=== PATIENT | male | born 1940 | race Caucasian/White ===

== ENCOUNTER 2021-11-14 07:45 | Outpatient (CLI) | payer MEDICARE, SELFPAY ==
--- NOTE | 2021-11-28 11:53 | WPDSLEEPSTUD ---
Sleep Study Date of Study: 11/14/21 Ordering Provider: Benjy Clark, DO Interpreting Physician: Neena Freitas MD Sleep Study Type: BiPAP Titration Height: 1.63 m Weight: 96.162 kg Body Mass Index: 36.3 Neck Circumference (inches): 14.5 [place]: 1 Reason for Sleep Study PETER on BiPAP, complaint with elevated AHI 21 and hypersomnolence with memory loss * PSG 2014, AHI 10.9 * PSG 04/2021, AHI 36 * PSG 06/05/2021 BiPAP 8/4; compliance from July 15 through August 13, 2021 shows average usage 4 hours 30 minutes, used 100% the days greater than 4 hours, AHI is 21 and median leak is 9.8 liters/minute. Sleep History Corbin Dupree is an 81 year old man sent for a BiPAP retitration. He has been having breakthrough apneas and snoring. He has good compliance using it so 100% the time over 4 hours a night. His AHI is 21 with a moderate air leak. He was changed to auto BiPAP and advised to tighten his strap. He was diagnosed with obstructive sleep apnea in 2014, did not tolerate CPAP so he returned it. He has daytime headaches, non restorative sleep and his excessive daytime sleepiness interferes with his daytime activities. He wants to resume treatment. He was supposed to be using oxygen at night but was not compliant with it. He is also having some memory issues and is followed by Neurology. He has nasal congestion, not using any Flonase currently. His prior BiPAP setting was 8/4. He has been compliant with use. He frequently awakens from sleep feeling short of breath. He frequently snores. He frequently has trouble sleeping with a cold. He occasionally wakes up gasping for breath at night. He does not have breathing problems at night reported to him by others. He does not sweat excessively at night or notice his heart pounding or beating irregularly at night. He rarely falls asleep during the day and rarely falls asleep involuntarily. Does not fall asleep while driving. He does not have loss of muscle tone with strong emotion or daytime difficulties due to excessive sleepiness. He does not feel paralyzed on waking or falling asleep nor does he have vivid dreamlike scenes upon awakening or falling asleep. He does not feel afraid to go to sleep. He does not have nightmares. He occasionally remembers his dreams. He does not have racing thoughts. He does not feel sad depressed or anxious. He does not have muscular tension or notice parts his body jerking. He does not kick at night. He frequently has crawling and aching feelings in his legs and leg pain during the night. He does not have morning jaw pain. He does not grind his teeth during sleep. He frequently is bothered by pain during the day. He is not awakened by pain at night. He frequently wakes up feeling stiff in the morning with sore achy muscles but does not wake up with pain in the spine. He has acid reflux. Normal bedtime is 11:00 p.m. taking an hour to fall asleep typically waking 2 or 3 times at night to urinate. He is able to return to sleep within 20 minutes. He wakes the morning by 9:00 a.m.. His weekend schedule is similar, going to bed at 11:00 p.m. waking at 10:00 a.m.. He does not take naps in the afternoon or evening. A short nap is not refreshing. He is usually drowsy in the morning for 1 hour. He feels better in the afternoon compared other times of day. He frequently awakens with morning headaches. He does not generally awakens feeling refreshed. He rarely has memory or concentration problems. Habits: Never smoked tobacco. Caffeine 2 cups a day. No alcohol or recreational drugs. [facility] Past Medical History Medical History (Updated 11/28/21 @ 13:31 by Neena Freitas MD) Allergic rhinitis Back pain Memory loss Obstructive sleep apnea Prostate cancer Surgical History Surgical History (Updated 11/28/21 @ 13:30 by Neena Freitas MD) History of prostate surgery Social History Social History (Updated 11/28/21 @ 1
[2021-11-28 13:42] VITALS: BMI 36.3
== END 2021-11-15 06:54 | disposition home or self-care (01) ==
LOC: ANHCSM 07:48
PROVIDERS: Visit Provider Internal Medicine Pulmonary Disease
DX: G47.33 Obstructive sleep apnea (adult) (pediatric) (principal)
CPT/HCPCS: 95811

== ENCOUNTER 2023-07-16 09:25 | Outpatient (CLI) | payer MEDICARE, OTHER, SELFPAY ==
--- NOTE | 2023-07-23 18:26 | WPDSLEEPSTUD ---
Sleep Study Date of Study: 07/16/23 Ordering Provider: eNena Freitas MD Interpreting Physician: Neena Freitas MD Sleep Study Type: ASV Height: 1.63 m Weight: 96.162 kg Body Mass Index: 36.3 Neck Circumference (inches): 16 [place]: 4 Reason for Sleep Study New onset central apneas noted on compliance report Sleep History Corbin Dupree is an 81 year old man who has obstructive sleep apnea, had a BiPAP titration in October 2021. He returns to the sleep lab for an ASV titration due to excessive central apneas noted on his most recent compliance report. 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 He did clinically feel better after these procedures. He has not used BiPAP since April 16, 2023. Use oxygen which was ordered by another doctor. He uses oxygen only at night with the cannula and his BiPAP settings never felt right afterwards. His most recent compliance report from January 17 through April 16, 2023 showed on BiPAP 14/8 his apnea-hypopnea index was 23.1 and the central apnea-hypopnea index was 18.6 with an obstructive apnea-hypopnea index of 3.9. He did not have a significant air leak. He developed new central apneas on BiPAP in the setting of cardiac events. This is why he return for an ASV titration. He currently sleeps in a recliner at home. He completed a new sleep questionnaire. He rarely awakens from sleep feeling short of breath. He occasionally awakens at night with heartburn, belching or coughing. Occasionally snores but only rarely loudly enough that others complain about it. He frequently has difficulty sleeping when he had a cold. He rarely wakes up gasping for breath at night. He frequently has breathing problems at night observed by others. He rarely sweats at night or notices his heart beating irregularly at night. He rarely falls asleep during the day, rarely falls asleep involuntarily, never falls asleep while driving. He does not have loss of muscle tone with strong emotion. He does not have daytime difficulties due to excessive sleepiness. He does not feel paralyzed on waking or falling asleep nor does he have vivid dreamlike scenes upon awakening or falling asleep. He does not feel afraid to go to sleep. He rarely has nightmares. Occasionally remembers his dreams. He rarely has racing thoughts. He does not feel sad or depressed. He rarely feels anxiety. He does not have muscular tension or notice parts of his body jerking. He rarely kicks at night. He does not have crawling or aching feelings in his legs or any kind of leg pain at night. He does not have morning jaw pain. He does not grind his teeth during sleep. He does not have pain during the day and is not awakened by pain at night. He does not wake up feeling stiff in the morning with sore achy muscles or pain in the neck and spine. He takes antacids regularly for his acid reflux and he has memory problems. Normal bedtime is 10:00 p.m. taking an hour to fall asleep typically waking once at night to urinate. He is able to return to sleep within 10 minutes. He wakes the morning by 9:00 a.m.. His weekend schedule is similar, going to bed at 10:00 p.m. waking at 10:00 a.m.. He does not take naps in the afternoon or evening. He is usually drowsy in the morning for 2 hours after waking. He feels better in the afternoon compared other times of day. He occasionally awakens with morning headaches. Habits: Never smoked tobacco. Caffeine: none No alcohol or recreational substances PMFSH Past Medical History Medical History Allergic rhinitis Back pain Memory loss Obstructive sleep apnea Pacemaker Prostate cancer Surgical History Surgical History Aortic valve replaced H/O cataract extraction History of prostate surgery Family History Family History (Rev
[2023-07-24 13:27] VITALS: BMI 36.3
== END 2023-07-17 07:15 | disposition home or self-care (01) ==
LOC: ANHCSM 09:26
PROVIDERS: PCP Orthopaedic Surgery; Visit Provider Internal Medicine Critical Care Medicine
DX: G47.39 Other sleep apnea (principal)
CPT/HCPCS: 95811